=== PATIENT | male | born 1975 | race Caucasian/White ===

== ENCOUNTER 2019-03-12 10:57 | Emergency (ER) | payer BC ==
[2019-03-12 12:19] VITALS: BP 131/70
[2019-03-12] MEDS ORDERED: Ibuprofen TAB* 400 MG PO ONE (12:51)
[2019-03-12] MEDS ORDERED: Ondansetron ODT TAB* 4 MG PO ONE (12:54)
--- NOTE | 2019-03-12 12:54 | UC ---
FLU HPI - HPI Summary HPI Summary: 5 day history of fever, cough, shortness of breath; spouse with similar illness. - History of Current Complaint Chief Complaint: UCRespiratory Stated Complaint: COUGH,CONGESTION,BODY ACHES Time Seen by Provider: 03/12/19 12:50 Hx Obtained From: Patient Onset/Duration: Gradual Onset, Lasting Days Severity Currently: Mild Severity Initially: Moderate Pain Intensity: 3 Associated Signs & Symptoms: Positive: Fever, T Max - 102 - Risk Factors Influenza Risk Factors: Negative - Allergy/Home Medications Allergies/Adverse Reactions: Allergies Allergy/AdvReac Type Severity Reaction Status Date / Time avoids acetaminophen Allergy "it's bad Uncoded 03/12/19 12:20 for you" Home Medications: Home Medications Oxymetazoline 0.05% NASAL SPR* [Afrin 0.05% NASAL SPRAY*] 1 spray NASAL Q12H PRN 03/12/19 [History Confirmed 03/12/19] PMH/Surg Hx/FS Hx/Imm Hx Previously Healthy: Yes - Surgical History Surgical History: None - Family History Known Family History: Positive: Non-Contributory - Social History Occupation: Employed Full-time Lives: With Family Alcohol Use: Weekly Alcohol Amount: 1 case over 2 days Substance Use Type: None Smoking Status (MU): Former Smoker Review of Systems All Other Systems Reviewed And Are Negative: Yes Constitutional: Positive: Fever, Fatigue Skin: Positive: Negative Eyes: Positive: Negative ENT: Positive: Sore Throat, Nasal Discharge Respiratory: Positive: Shortness Of Breath, Cough Cardiovascular: Negative: Palpitations, Chest Pain Gastrointestinal: Positive: Negative Genitourinary: Positive: Negative Motor: Positive: Negative Neurovascular: Positive: Negative Musculoskeletal: Positive: Myalgia Neurological: Positive: Headache Psychological: Positive: Negative Is Patient Immunocompromised?: No Physical Exam Triage Information Reviewed: Yes Appearance: Ill-Appearing Vital Signs: Initial Vital Signs Temp 102.2 F 03/12/19 12:05 Pulse 107 03/12/19 12:05 Resp 20 03/12/19 12:05 BP 131/70 03/12/19 12:05 Pulse Ox 97 03/12/19 12:05 Eye Exam: Normal ENT: Positive: Pharyngeal erythema, TMs normal Neck: Positive: Supple Respiratory: Positive: Normal breath sounds, No respiratory distress, Wheezing - occasional Cardiovascular: Positive: RRR, No Murmur, Pulses Normal Musculoskeletal Exam: Normal Neurological Exam: Normal Psychological Exam: Normal Skin Exam: Normal Flu Course/Dx - Course Course Of Treatment: symptomatic treatment of influenza. - Differential Dx/Diagnosis Differential Diagnosis/HQI/PQRI: Influenza, Pneumonia Provider Diagnosis: Influenza B Discharge ED - Sign-Out/Discharge Documenting (check all that apply): Patient Departure All imaging exams completed and their final reports reviewed: No Studies - Discharge Plan Condition: Stable Disposition: HOME Prescriptions: Codeine Phosphate/Guaifenesin [Guaifen-Codeine 200-20 mg/10Ml] 10 ml PO Q6H PRN #200 ml MDD 40ml PRN Reason: Cough Patient Education Materials: Influenza (ED) Forms: *Work Release Referrals: Judie Gongora MD [Primary Care Provider] - Additional Instructions: Continue symptomatic treatment of flu,and return if you have increasing shortness of breath or chest pain. Use the codeine containing suppressant with caution. You can also use a dextramethorphan suppressant. Over the counter Zarbees can help with night time coughing. Off work 03/13 and 03/14. - Billing Disposition and Condition Condition: STABLE Disposition: Home
[2019-03-12 13:06] LABS: Influenza B Molecular POSITIVE (Negative)
== END 2019-03-12 13:33 | disposition home or self-care (01) ==
LOC: UCCORT 10:57
DX: J11.1 Influenza due to unidentified influenza virus with other respiratory manifestations (principal); Z88.6 Allergy status to analgesic agent; Z87.891 Personal history of nicotine dependence
CPT/HCPCS: 99202; A9270-GY; G0463